=== PATIENT | female | born 1945 | race Caucasian/White ===

== ENCOUNTER 2017-11-16 10:19 | Observation (INO) | payer OTHER, MEDICARE ==
--- NOTE | 2017-11-16 11:03 | PDOC ---
History of Present Illness - General Chief Complaint: Pain, Acute Stated Complaint: SHOULDER PAIN Time Seen by Provider: 11/16/17 11:01 History Source: Patient Exam Limitations: No Limitations - History of Present Illness Initial Comments: 11/16/17 12:37 [place] 72 YOF with h/o metastatic breast ca, lung cancer on oral chemo, s/p VATS , Aortic Stenosis and AR s/p AVR on ASA only, HTN, NIDDM, HLD presenting with atraumatic right shoulder pain since 530 am while sitting in the kitchen. No weakness or paresthesias. Usually takes chronic opioids, took tylenol w/o relief. No f/c, cp or sob. . Past History - Past Medical History Allergies/Adverse Reactions: Allergies Allergy/AdvReac Type Severity Reaction Status Date / Time No Known Allergies Allergy Verified 11/16/17 10:37 Home Medications: Ambulatory Orders Calcium Carbonate [Caltrate 600] 600 mg PO DAILY 12/01/13 Cyanocobalamin [Vitamin B12 -] 1,000 mcg PO DAILY 12/01/13 Folic Acid/Multivit-Min/Lutein [Centrum Silver Chewable Tablet] 1 each PO DAILY 12/01/13 Gabapentin 100 mg PO BID 12/01/13 Simvastatin [Zocor -] 40 mg PO HS 12/01/13 Spironolactone 25 mg PO BID 12/01/13 metFORMIN HCL [Glucophage -] 1,000 mg PO BID 12/01/13 Aspirin [ASA -] 81 mg PO DAILY 11/18/14 Letrozole 2.5 mg PO HS 11/18/14 Metoprolol Succinate [Toprol Xl -] 50 mg PO DAILY 11/18/14 Palbociclib [Ibrance] 75 mg PO ASDIR 11/16/17 Cancer: Yes (LUNG,MAST) Cardiac Disorders: Yes (VALVE REPLACEMENT) COPD: No Diabetes: Yes (BORDERLINE) - Surgical History Cardiac Surgery: Yes (AORTIC VALVE REPLACEMENT, 11/16/13) Orthopedic Surgery: Yes (elbow surgery) - Suicide/Smoking/Psychosocial Hx Smoking History: Former smoker Have you smoked in the past 12 months: No If you are a former smoker, when did you quit?: 1986 Information on smoking cessation initiated: No Hx Alcohol Use: No Drug/Substance Use Hx: No Substance Use Type: None Hx Substance Use Treatment: No Review of Systems - Review of Systems Able to Perform ROS?: Yes Comments:: 11/16/17 16:09 GENERAL/CONSTITUTIONAL: No fever or chills. No weakness. no sweats. HEAD, EYES, EARS, NOSE AND THROAT: No change in vision or hearing. No ear pain or discharge. No sore throat or mouth pain. No difficulty swallowing. No congestion. CARDIOVASCULAR: No chest pain or palpitations, syncope or edema. RESPIRATORY: No SOB, cough, wheezing, or hemoptysis. GASTROINTESTINAL No nausea/vomiting. No diarrhea or constipation. No bloody stools. GENITOURINARY: No hematuria, dysuria, frequency, urgency or other changes. MUSCULOSKELETAL: No joint or muscle swelling or pain. No neck or back pain. SKIN: No rash or changes in skin color or lesions. NEUROLOGIC: No headache, vertigo, loss of consciousness, or change in strength/ sensation. No gait instability. HEMATOLOGIC/LYMPHATIC: No anemia, easy bruising/bleeding, or history of blood clots. +shoulder pain ALLERGIC/IMMUNOLOGIC: No allergies All other systems reviewed and negative, or as documented in HPI. *Physical Exam - Vital Signs Last Vital Signs Temp Pulse Resp BP Pulse Ox 98.2 F 82 18 151/57 L 96 11/16/17 10:37 11/16/17 10:37 11/16/17 10:37 11/16/17 10:37 11/16/17 10:37 - Physical Exam Comments: 11/16/17 12:39 General: Well appearing, awake and alert, NAD. HEENT: NCAT, PERRL, EOMI, clear conjunctiva, anicteric, moist mucus membranes, clear oropharynx, no oral lesions.. Neck: neck supple, FROM. no JVD or carotid bruit. Resp: CTAB, normal and even respirations, no respiratory distress CVS: RRR, soft holosystolic murmurs, 2+ peripheral pulses throughout, no peripheral edema chest: sternotomy scar, mastectomy scar Abdomen: soft, NTND, no peritoneal signs. Back: nontender, normal inspection and ROM MSK: no edema, ARGUETA x4, ROM intact. No clubbing or cyanosis. normal bulk and tone. No reproducible chest wall or right shoulder tenderness. no deltoid or AC joint/clavicular tenderness Neuro: alert, oriented appropriately; no focal neurologic deficits. SILT, 5/5 distal and prox strength in all extrem. speech clear. Skin: warm and well perfused, cap refill <2 sec, normal color 11/16/17 12:39 11/16/17 16:09 ED Treatment Course - LABORATORY CBC & Chemistry Diagram: 11/16/17 11:51 11/16/17 11:51 Medical Decision Making - Medical Decision Making 11/16/17 12:38 [place] 72 YOF with h/o metastatic breast ca, lung cancer on oral chemo, s/p VATS , Aortic Stenosis and AR s/p AVR on ASA only, HTN, NIDDM, HLD presenting with atraumatic nonexertional/nonreproducible right shoulder pain since 530 am while sitting in the kitchen. Vitals with mild hypertension, equal bp bilateral upper extremities. DDx includes ACS, angina, chest pain NOS, costochondritis, GERD, pleurisy, anxiety, esophageal spasm. Low suspicion for pulmonary embolism or dissection. labs and lytes reviewed, wnl. baseline anemia. D dimer positive, CTA to r/o dissection/PE trop negative x1, EKG normal sinus rhythm at 64 bpm, no interval abnormalities, narrow QRS, ST and T wave segments and morphology normal. morphine given for pain. on clinical reeval, improved but still present, nonreproducible. CT Angio chest : neg for PE or dissection, pleural based irregularity, which is stable c/w her malignancy. due to atypical pain presentation w/o trauma or msk reproducibility, and comorbidities such as female gender and DM/valvular heart disease/HTN will admit for r/o ACS and front desk monitor/EKG and tele, pain control Plan for admit observation telemetry, to r/o ischemia, serial trops and EKG/ tele monitoring. ASA administered, pain controlled, discussion with patient and family at bedside, questions answered. admit Dr. Bailey service/PMD Dr. Ibarra. 11/16/17 16:46 11/16/17 16:48 *DC/Admit/Observation/Transfer Diagnosis at time of Disposition: Metastatic cancer, Intractable pain, Chest pain, atypical - Discharge Dispostion Condition at time of disposition: Guarded - Referrals Referrals: Raymond Ibarra MD [Primary Care Provider] - - Patient Instructions - Post Discharge Activity
[2017-11-16] MEDS ORDERED: morphine CARPU-JECT 4 MG/1 ML DISP.SYRIN IVPUSH ONE ×2 (11:50→13:27)
[2017-11-16] MEDS ORDERED: morphine SULFATE 4 MG/ML VIAL ONE ×2 (12:00→13:50)
--- NOTE | 2017-11-16 12:08 | PDOC ---
History of Present Illness - General Chief Complaint: Pain, Acute Stated Complaint: SHOULDER PAIN Time Seen by Provider: 11/16/17 11:01 - History of Present Illness Initial Comments: 11/16/17 12:05 72 yo F w/ a hx of Lung Ca, aortic stenosis/regurgitation s/p bioprosthetic AVR , HTN, DM, chol, metastatic breast cancer s/p finished chemo + mastectomy here with the acute onset of Right sided anterior shoulder pain. She reports no weakness, numbness or tingling, just terrible focal aching pain. She denies chest pain, neck pain, hand pain, SOB, new onset difficulty breathing. She had no pain last night when she went to bed but this morning woke up with excruciating shoulder pain. Denies N/V/D. No new complaints other than shoulder pain. Past History - Past Medical History Allergies/Adverse Reactions: Allergies Allergy/AdvReac Type Severity Reaction Status Date / Time No Known Allergies Allergy Verified 11/16/17 10:37 Home Medications: Ambulatory Orders Calcium Carbonate [Caltrate 600] 600 mg PO DAILY 12/01/13 Cyanocobalamin [Vitamin B12 -] 1,000 mcg PO DAILY 12/01/13 Folic Acid/Multivit-Min/Lutein [Centrum Silver Chewable Tablet] 1 each PO DAILY 12/01/13 Gabapentin 100 mg PO BID 12/01/13 Simvastatin [Zocor -] 40 mg PO HS 12/01/13 Spironolactone 25 mg PO BID 12/01/13 metFORMIN HCL [Glucophage -] 1,000 mg PO BID 12/01/13 Aspirin [ASA -] 81 mg PO DAILY 11/18/14 Letrozole 2.5 mg PO HS 11/18/14 Metoprolol Succinate [Toprol Xl -] 50 mg PO DAILY 11/18/14 Palbociclib [Ibrance] 75 mg PO ASDIR 11/16/17 Cancer: Yes (LUNG,MAST) Cardiac Disorders: Yes (VALVE REPLACEMENT) COPD: No Diabetes: Yes (BORDERLINE) - Surgical History Cardiac Surgery: Yes (AORTIC VALVE REPLACEMENT, 11/16/13) Orthopedic Surgery: Yes (elbow surgery) - Suicide/Smoking/Psychosocial Hx Smoking History: Former smoker Have you smoked in the past 12 months: No If you are a former smoker, when did you quit?: 1986 Information on smoking cessation initiated: No Hx Alcohol Use: No Drug/Substance Use Hx: No Substance Use Type: None Hx Substance Use Treatment: No Review of Systems - Review of Systems Comments:: 11/16/17 12:12 CONSTITUTIONAL: Absent: fever, chills, diaphoresis, generalized weakness, malaise, loss of appetite HEENT: Absent: rhinorrhea, nasal congestion, throat pain, throat swelling, difficulty swallowing, mouth swelling, ear pain, eye pain, visual Changes CARDIOVASCULAR: Absent: chest pain, syncope, palpitations, irregular heart rate, lightheadedness , peripheral edema RESPIRATORY: Absent: cough, shortness of breath, dyspnea with exertion, orthopnea, wheezing, stridor, hemoptysis GASTROINTESTINAL: Absent: abdominal pain, abdominal distension, nausea, vomiting, diarrhea, constipation, melena, hematochezia GENITOURINARY: Absent: dysuria, frequency, urgency, hesitancy, hematuria, flank pain, genital pain MUSCULOSKELETAL: Present: Arthralgia, myalgia Absent: joint swelling SKIN: Absent: rash, itching, pallor HEMATOLOGIC/IMMUNOLOGIC: Present: Easy bleeding Absent: easy bruising, lymphadenopathy, frequent infections ENDOCRINE: Absent: unexplained weight gain, unexplained weight loss, heat intolerance, cold intolerance NEUROLOGIC: Absent: headache, focal weakness or paresthesias, dizziness, unsteady gait, seizure, mental status changes, bladder or bowel incontinence PSYCHIATRIC: Absent: anxiety, depression, suicidal or homicidal ideation, hallucinations. *Physical Exam - Vital Signs Last Vital Signs Temp Pulse Resp BP Pulse Ox 98.2 F 82 18 151/57 L 96 11/16/17 10:37 11/16/17 10:37 11/16/17 10:37 11/16/17 10:37 11/16/17 10:37 - Physical Exam Comments: 11/16/17 12:18 GENERAL: Well developed, well nourished. Awake and alert. No acute distress. HEENT: Normocephalic, atraumatic. PERRLA, EOMI. No conjunctival pallor. Sclera are non- icteric. Moist mucous membranes. Oropharynx is clear. NECK: Supple. Full ROM. No JVD. No thyromegaly. No lymphadenopathy. CARDIOVASCULAR: Regular rate and rhythm. Systolic murmur. Distal pulses are 2+ and symmetric. PULMONARY: No evidence of respiratory distress. Lungs clear to auscultation bilaterally. No wheezing, rales or rhonchi. ABDOMINAL: Soft. Non-tender. Non-distended. No rebound or guarding. No organomegaly. Normoactive bowel sounds. MUSCULOSKELETAL There is focal Right non-reproducible anterior shoulder pain. Normal range of motion at all joints. No bony deformities or tenderness. No CVA tenderness. EXTREMITIES: No cyanosis. No clubbing. No edema. No calf tenderness. SKIN: Warm and dry. Normal capillary refill. No rashes. No jaundice. NEUROLOGICAL: Alert, awake, appropriate. Cranial nerves 2-12 intact. No deficits to light touch in face, upper extremities and lower extremities. No motor deficits in the in face, upper extremities and lower extremities. Normal speech. Gait is normal without ataxia. PSYCHIATRIC: Cooperative. Good eye contact. Appropriate mood and affect. ED Treatment Course - LABORATORY CBC & Chemistry Diagram: 11/16/17 11:51 11/16/17 11:51 - RADIOLOGY Radiology Studies Ordered: Category Date Time Status CHEST PA & LAT [RAD] Stat Radiology 11/16/17 11:51 Ordered SHOULDER-RIGHT [RAD] Stat Radiology 11/16/17 11:52 Ordered - Medications Given in the ED: ED Medications Discontinued Medications Generic Name Dose Route Start Last Admin Trade Name Freq PRN Reason Stop Dose Admin Morphine Sulfate 4 mg 11/16/17 11:50 11/16/17 12:01 Morphine Injection - IVPUSH 11/16/17 11:51 4 mg ONCE ONE Administration Medical Decision Making - Medical Decision Making 11/16/17 12:21 72 yo F w/ a hx of Lung Ca, aortic stenosis/regurgitation s/p bioprosthetic AVR , HTN, DM, chol, metastatic breast cancer s/p finished chemo + mastectomy here with the acute onset of Right sided anterior shoulder pain. Working DD includes but not limited to: metastasis, dissection, PE, ACS, MSK pain, pathologic fracture Plan: BP measurement both arms, EKG, Xrays, labs, analgesia, re-assess. BP R - 130/57 BP L - 131/54 Labs notable for anemia, and elevated D Dimer, otherwise unremarkable and WNL. Will do CTA to look for PE or dissection. - CTA showed no signs of acute PE or dissection. Will admit patient for obs for intractable pain, atypical chest pain, and probable metastasis so she can receive and MRI. 11/16/17 17:31 *DC/Admit/Observation/Transfer Diagnosis at time of Disposition: Metastatic cancer, Intractable pain, Chest pain, atypical - Discharge Dispostion Condition at time of disposition: Guarded Decision to Admit order: Yes - Referrals - Patient Instructions - Post Discharge Activity
[2017-11-16 12:20] LABS: BASO % 2.2 % (0-2.0); EOS % 3.5 % (0-4.5); HEMATOCRIT 30.9 % (32.4-45.2); HEMOGLOBIN 10.6 GM/dL (10.7-15.3); LYMPH % 16.5 % (8-40); MCH 35.7 pg (25.7-33.7); MCHC 34.3 g/dl (32.0-36.0); MEAN CELL VOLUME 104.2 fl (80-96); MEAN PLT VOLUME 7.6 fl (7.5-11.1); MONO % 4.2 % (3.8-10.2); NEUT % 73.6 % (42.8-82.8); PLATELET COUNT 371 K/MM3 (134-434); RBC 2.96 M/mm3 (3.60-5.2); RDW 16.8 % (11.6-15.6); WHITE BLOOD COUNT 4.7 K/mm3 (4.0-10.0)
[2017-11-16 12:40] LABS: ALBUMIN 4.1 g/dl (3.4-5.0); ALK PHOS 79 U/L (45-117); ANION GAP 8 MMOL/L (8-16); BILIRUBIN,TOTAL 0.3 mg/dL (0.2-1); BLOOD UREA NITROGEN 18 mg/dL (7-18); CALCIUM 9.8 mg/dL (8.5-10.1); CHLORIDE 106 mmol/L (98-107); CO2 26 mmol/L (21-32); CREATININE 0.9 mg/dL (0.55-1.3); GLUCOSE,RANDOM 92 mg/dL (74-106); POTASSIUM 4.8 mmol/L (3.5-5.1); SGOT/AST 16 U/L (15-37); SGPT/ALT 33 U/L (13-61); SODIUM 140 mmol/L (136-145); TOT PROT 7.6 g/dl (6.4-8.2)
[2017-11-16] MEDS ORDERED: SODIUM CHLORIDE 0.9% 500 ML INFUS.BAG IV ONE (13:02)
[2017-11-16] MEDS ORDERED: LIDOCAINE 5% TOPICAL PATCH TP ONE (13:17)
[2017-11-16] MEDS ORDERED: LIDOCAINE 5% TOPICAL PATCH ONE (13:18)
--- NOTE | 2017-11-16 15:25 | EKG ---
Test Reason : Blood Pressure : / mmHG Vent. Rate : 064 BPM Atrial Rate : 064 BPM P-R Int : 162 ms QRS Dur : 094 ms QT Int : 404 ms P-R-T Axes : 051 053 051 degrees QTc Int : 416 ms NORMAL SINUS RHYTHM NORMAL ECG WHEN COMPARED WITH ECG OF 18-NOV-2014 16:26, NO SIGNIFICANT CHANGE WAS FOUND Confirmed by MD Petty Daniel ([id number]) on 11/16/2017 3:25:49 PM Referred By: Confirmed By:Jozef Petty MD
[2017-11-16] MEDS ORDERED: morphine SULFATE 4 MG/ML VIAL IVPUSH PRN (16:50)
[2017-11-16] MEDS ORDERED: oxyCODONE HCL 5 MG TABLET PO PRN (16:51)
[2017-11-16] MEDS ORDERED: ACETAMINOPHEN 325 MG TABLET (FP) PO PRN ×3 (16:51→16:55)
[2017-11-16] MEDS ORDERED: LETROZOLE 2.5 MG TABLET (FP) PO SCH (22:00)
[2017-11-16] MEDS ORDERED: LIDOCAINE PATCH REMOVAL MC SCH (22:00)
[2017-11-16] MEDS ORDERED: ATORVASTATIN CA 40 MG TABLET (FP) PO SCH (22:00)
[2017-11-16] MEDS: SPIRONOLACTONE 25 MG TABLET (FP) PO SCH (22:36)
[2017-11-16] MEDS: GABAPENTIN 100 MG CAPSULE (FP) PO SCH (22:37)
[2017-11-16] MEDS: HEPARIN NA (PORCINE) 5,000 UNITS/ML 1ML VIAL SQ SCH (22:37)
[2017-11-16 23:48] VITALS: BMI 36.6
[2017-11-16] MEDS ORDERED: FLU VACCINE QUAD 60 MCG/0.5 ML (MDV 18-19) IM ONE (23:49)
--- NOTE | 2017-11-17 08:14 | HP ---
Admitting History and Physical - Primary Care Physician PCP: Raymond Ibarra (Covering physician:Uriel Bailey) - Admission Chief Complaint: right shoulder pain History of Present Illness: 72 yo F w/ a hx of Lung Ca, aortic stenosis/regurgitation s/p bioprosthetic AVR , HTN, DM, chol, metastatic breast cancer s/p finished chemo + mastectomy here with the acute onset of Right sided anterior shoulder pain. She reports no weakness, numbness or tingling, just terrible focal aching pain. She denies chest pain, neck pain, hand pain, SOB, new onset difficulty breathing. She had no pain last night when she went to bed but this morning woke up with excruciating shoulder pain. Denies N/V/D. No new complaints other than shoulder pain. History Source: Patient, Medical Record Limitations to Obtaining History: No Limitations - Past Medical History Cardiovascular: Yes: Other (aortic valve replacement 2013). No: CHF Heme/Onc: Yes: Anemia, Cancer, Current Chemotherapy Endocrine: Yes: Diabetes Mellitus - Past Surgical History Past Surgical History: Yes: Mastectomy, Valve Replacement - Smoking History Smoking history: Former smoker Have you smoked in the past 12 months: No If you are a former smoker, when did you quit?: 1986 - Alcohol/Substance Use Hx Alcohol Use: No - Social History ADL: Independent History of Recent Travel: No Home Medications - Allergies Allergies/Adverse Reactions: Allergies Allergy/AdvReac Type Severity Reaction Status Date / Time No Known Allergies Allergy Verified 11/16/17 10:37 - Home Medications Home Medications: Ambulatory Orders Calcium Carbonate [Caltrate 600] 600 mg PO DAILY 12/01/13 Cyanocobalamin [Vitamin B12 -] 1,000 mcg PO DAILY 12/01/13 Folic Acid/Multivit-Min/Lutein [Centrum Silver Chewable Tablet] 1 each PO DAILY 12/01/13 Gabapentin 300 mg PO BID 12/01/13 Simvastatin [Zocor -] 40 mg PO HS 12/01/13 Spironolactone 25 mg PO BID 12/01/13 metFORMIN HCL [Glucophage -] 1,000 mg PO BID 12/01/13 Aspirin [ASA -] 81 mg PO DAILY 11/18/14 Letrozole 2.5 mg PO HS 11/18/14 Metoprolol Succinate [Toprol Xl -] 50 mg PO DAILY 09/24/15 Palbociclib [Ibrance] 75 mg PO DAILY 11/16/17 Review of Systems - Review of Systems Constitutional: reports: No Symptoms Eyes: reports: No Symptoms HENT: reports: No Symptoms Neck: reports: No Symptoms Cardiovascular: reports: No Symptoms Respiratory: reports: No Symptoms Gastrointestinal: reports: No Symptoms Genitourinary: reports: No Symptoms Breasts: reports: No Symptoms Reported Musculoskeletal: reports: Joint Pain (right shoulder) Integumentary: reports: No Symptoms Neurological: reports: No Symptoms Endocrine: reports: No Symptoms Hematology/Lymphatic: reports: No Symptoms Psychiatric: reports: No Symptoms Physical Examination Vital Signs: Vital Signs Temperature 97.8 F 11/17/17 05:00 Pulse Rate 72 11/17/17 05:00 Respiratory Rate 20 11/17/17 05:00 Blood Pressure 115/53 L 11/17/17 05:00 O2 Sat by Pulse Oximetry (%) 96 11/17/17 00:50 Findings/Remarks: Pt comfortable, sitting at the edge of the bed, reports of no pain MRI RUE results pending awaiting ortho consult Constitutional: Yes: Well Nourished, No Distress, Calm Cardiovascular: Yes: Regular Rate and Rhythm Respiratory: Yes: Regular Gastrointestinal: Yes: Normal Bowel Sounds, Soft Musculoskeletal: Yes: Other (right shoulder pain) Extremities: Yes: WNL Edema: No Peripheral Pulses WNL: Yes Neurological: Yes: Alert, Oriented Psychiatric: Yes: Alert, Oriented Labs: CBC, BMP 11/16/17 11:51 11/16/17 11:51 Imaging - Results Chest X-ray: Report Reviewed X-ray: Report Reviewed Cat Scan: Report Reviewed MRI: Pending Problem List - Problems (1) Shoulder pain, right Assessment/Plan: -Ortho consult -MRI RUE results pending -lidoderm patch -received 8 mg of morphine in the ER yesterday Code(s): M25.511 - PAIN IN RIGHT SHOULDER (2) Metastatic cancer Assessment/Plan: Sees Dr Britton in [place] Code(s): C79.9 - SECONDARY MALIGNANT NEOPLASM OF UNSPECIFIED SITE Assessment/Plan see problem list d/c home later today
[2017-11-17 09:21] VITALS: BP 120/64; PULSE 71; TEMP 98.1
[2017-11-17] MEDS ORDERED: ASPIRIN 81 MG CHEWABLE TABLETS PO SCH (10:00)
[2017-11-17] MEDS ORDERED: CYANOCOBALAMIN 1,000 MCG TABLET (FP) PO SCH (10:00)
[2017-11-17] MEDS: HEPARIN NA (PORCINE) 5,000 UNITS/ML 1ML VIAL SQ SCH (10:07)
[2017-11-17] MEDS: GABAPENTIN 100 MG CAPSULE (FP) PO SCH (10:07)
[2017-11-17] MEDS: SPIRONOLACTONE 25 MG TABLET (FP) PO SCH (10:08)
--- NOTE | 2017-11-17 10:50 | PN ---
Progress Note (short form) - Note Progress Note: Pt seen and examined. She is a 72 year old F pt with a c/o severe pain in the right shoulder for the past 24 hours. Denies any h/o trauma, infection, or any other pathology involving the right shoulder. She states it is much better this AM. Better ROM, less pain. + h/o lung CA, breast CA, mets. PE RUE and shoulder look good, no swelling, no erythema, no deformity, no signs of acute trauma. RUE NVI with excellent ROM throughout, including good ROM of the right shoulder in all planes. Good RTC resistance strength + very tender over the anterior, proximal, biceps tendon Xrays Nl, no acute bony pathology, mildly high riding humeral head MRI Report pending, however I do not appreciate any fracture, dislocation, metastatic lesion or complete RTC tear. I can see edema and inflammation of the right RTC insertion, AC joint Imp 1 day of acute pain, right proximal biceps tendinitis Rec DC home today F/U as an out pt NSAIDS if tolerable Activities as tolerated
== END 2017-11-17 13:32 | disposition home or self-care (01) ==
LOC: JER 10:19 → JERBED 15:36 → J7W 19:04
PROVIDERS: ADMIT Family Medicine; ATTEND Family Medicine
PROC: 3E033NZ Introduction of Analgesics, Hypnotics, Sedatives into Peripheral Vein, Percutaneous Approach (ICD-10-PCS; principal; 2017-11-16)
PROC: 3E0337Z Introduction of Electrolytic and Water Balance Substance into Peripheral Vein, Percutaneous Approach (ICD-10-PCS; 2017-11-16)
PROC: 3E013GC Introduction of Other Therapeutic Substance into Subcutaneous Tissue, Percutaneous Approach (ICD-10-PCS; 2017-11-16)
DX: M25.511 Pain in right shoulder (principal); C78.00 Secondary malignant neoplasm of unspecified lung; I10 Essential (primary) hypertension; E78.5 Hyperlipidemia, unspecified; E11.9 Type 2 diabetes mellitus without complications; Z87.891 Personal history of nicotine dependence; Z95.2 Presence of prosthetic heart valve; Z79.82 Long term (current) use of aspirin; Z79.84 Long term (current) use of oral hypoglycemic drugs; Z92.21 Personal history of antineoplastic chemotherapy; Z85.3 Personal history of malignant neoplasm of breast
CPT/HCPCS: 36415; 71046-TC-FY; 71275-TC; 73030-TC-RT-FY; 73218-TC-RT; 80053; 82962; 83036; 84484; 85025; 85379; 93005; 93010; 96372; 96374; 96376; 99285-25; G0378; J1644

== ENCOUNTER 2018-03-12 06:02 | Day surgery (SDC) | payer OTHER, MEDICARE ==
[2018-03-11 10:12] VITALS: BMI 33.6
[2018-03-12 06:27] VITALS: PULSE 80; TEMP 98.2
[2018-03-12] MEDS ORDERED: OFLOXACIN 0.3% OPHTHALMIC SOLUTION 5 ML BOTTLE ONE (06:36)
[2018-03-12] MEDS ORDERED: KETOROLAC TROMETHAMINE 0.5% EYE DROP 1 DROP DROPS ONE (06:36)
[2018-03-12] MEDS ORDERED: CYCLOPENTOLATE HCL 1% OPHTH SOLN 2 ML BOTTLE ONE (06:36)
[2018-03-12] MEDS ORDERED: TROPICAMIDE 1% OPHTH SOLN 15 ML BOTTLE ONE (06:36)
[2018-03-12] MEDS ORDERED: ACETAMINOPHEN 325 MG TABLET (FP) PO PRN (06:53)
[2018-03-12] MEDS ORDERED: PHENYLEPHRINE 2.5% OPHTH SOLN 15 ML BOTTLE OP SCH (07:00)
[2018-03-12] MEDS ORDERED: CYCLOPENTOLATE HCL 1% OPHTH SOLN 2 ML BOTTLE OP SCH (07:00)
[2018-03-12] MEDS ORDERED: PHENYLEPHRINE 2.5% OPHTH SOLN 15 ML BOTTLE OD SCH (07:02)
[2018-03-12] MEDS: KETOROLAC TROMETHAMINE 0.5% EYE DROP 1 DROP DROPS OP SCH ×2 (07:03→07:13)
[2018-03-12] MEDS: OFLOXACIN 0.3% OPHTHALMIC SOLUTION 5 ML BOTTLE OP SCH ×2 (07:03→07:13)
[2018-03-12] MEDS: TROPICAMIDE 1% OPHTH SOLN 15 ML BOTTLE OP SCH ×2 (07:04→07:14)
[2018-03-12] MEDS ORDERED: CHONDROITIN SU A/HYALUR SOD 1 KIT ONE (07:09)
[2018-03-12] MEDS ORDERED: VANCOMYCIN 500 MG VIAL (RESTRICTED TO ID ONLY) ONE (07:24)
[2018-03-12] MEDS ORDERED: EPINEPHrine/PF 1 MG/1 ML (1:1,000) AMPULE ONE (07:24)
[2018-03-12] MEDS ORDERED: WATER FOR INJ,STERILE 10 ML ONE (07:25)
[2018-03-12] MEDS ORDERED: BSS (NA/CA/MG/K) BALANCED SALT SOLUTION OPHTH SOLN 15 ML BOTTLE ONE (07:25)
[2018-03-12] MEDS ORDERED: TETRACAINE 0.5% OPHTH SOLN 2 ML BOTTLE ONE (07:25)
[2018-03-12] MEDS ORDERED: LIDOCAINE HCL/PF 1% SDV 5ML VIAL ONE (07:25)
[2018-03-12] MEDS ORDERED: POVIDONE-IODINE 5% OPHTHALMIC PREP 30 ML SOLUTION ONE (07:26)
[2018-03-12] MEDS ORDERED: MIDAZOLAM HCL 2 MG/2 ML SINGLE DOSE VIAL ONE (07:30)
[2018-03-12] MEDS ORDERED: ePHEDrine SULFATE 50 MG/1 ML AMPULE ONE (07:32)
[2018-03-12] MEDS ORDERED: PROPOFOL 20 ML ONE (07:33)
[2018-03-12] MEDS ORDERED: SUCCINYLCHOLINE CHLORIDE 200 MG/10 ML VIAL ONE (07:33)
[2018-03-12] MEDS ORDERED: TETRACAINE 0.5% OPHTH SOLN 2 ML BOTTLE OD ONE (08:07)
[2018-03-12] MEDS ORDERED: POVIDONE-IODINE 5% OPHTHALMIC PREP 30 ML SOLUTION OD ONE (08:08)
[2018-03-12] MEDS ORDERED: LIDOCAINE HCL 1% PRESERVATIVE FREE - 30ML VIAL IO ONE (08:14)
[2018-03-12] MEDS ORDERED: CHONDROITIN SU A/HYALUR SOD 1 KIT IO ONE (08:14)
[2018-03-12] MEDS ORDERED: BSS (NA/CA/MG/K) BALANCED SALT SOLUTION OPHTH SOLN 15 ML BOTTLE OD ONE (08:14)
[2018-03-12] MEDS ORDERED: EPINEPHrine/PF 1 MG/1 ML (1:1,000) AMPULE SQ ONE (08:20)
--- NOTE | 2018-03-12 08:55 | SPEC ---
DATE OF OPERATION: OPERATION: Phacoemulsification with posterior chamber intraocular lens implantation, right eye. Lens used [id number], 21.5 Diopter power, Serial No. [id number]. PREOPERATIVE DIAGNOSIS: Cataract, right eye. POSTOPERATIVE DIAGNOSIS: Cataract, right eye. SURGEON: Agusto Saha M.D. ANESTHESIA: Topical MAC. COMPLICATIONS: None. PROCEDURE: The patient was brought to the operating room and correctly identified along with the operative site and the correct intraocular lens mendez. The patient was then prepped and draped in the usual sterile fashion including 5% Betadine solution in the conjunctival sac and an eyelid drape. An eyelid speculum was then placed in the eye. A paracentesis port was created and approximately 0.5 mL of preservative free Lidocaine was then injected into the eye. Viscoelastic was then injected to inflate the anterior chamber. A temporal clear corneal wound was created. A continuous circular capsulorrhexis was performed. The nucleus was then hydrodissected with BSS and removed with phacoemulsification. The remaining cortical material was irrigated and aspirated. Viscoelastic was injected to inflate the capsular bag and the intraocular lens was then implanted into the capsular bag. The remaining Viscoelastic was irrigated and aspirated from the eye. The IOL was noted to be well centered and completely covered by the anterior capsulorrhexis. Topical vancomycin was placed and the eye patched and shielded. All wounds were tested and found to be watertight. No suture was placed. The eye was then shielded. The patient was then discharged from the operating room in stable condition. Estela MARES/[id number]
[2018-03-12 09:32] VITALS: BP 116/43
== END 2018-03-12 09:35 | disposition home or self-care (01) ==
LOC: JASU-SURG 06:02
PROVIDERS: ATTEND Ophthalmology
PROC: 08RJ3JZ Replacement of Right Lens with Synthetic Substitute, Percutaneous Approach (ICD-10-PCS; principal; 2018-03-12 08:00)
DX: H26.9 Unspecified cataract (principal); E11.9 Type 2 diabetes mellitus without complications; Z79.84 Long term (current) use of oral hypoglycemic drugs
CPT/HCPCS: 82962

== ENCOUNTER 2019-01-17 07:17 | Emergency (ER) | payer OTHER ==
[2019-01-17 07:26] VITALS: BP 131/59; PULSE 81; TEMP 98; BMI 30.2
--- NOTE | 2019-01-17 07:58 | PDOC ---
History of Present Illness - General Chief Complaint: Respiratory Stated Complaint: COLD Time Seen by Provider: 01/17/19 07:29 History Source: Patient Exam Limitations: No Limitations - History of Present Illness Initial Comments: 01/17/19 07:43 73F with a PMH of Lung Ca, aortic stenosis/regurgitation s/p bioprosthetic AVR, HTN, DM, chol, metastatic breast cancer s/p finished chemo + mastectomy, who presents to the ER with 4 days of worsening productive cough. The patient states that she's had a cough for over a month, but over the last 4 days has experienced worsening sleep, chills, cough, and nausea. She denies CP or worsening SOB, dysuria, abdominal pain, diaphoresis, but admits to a headache. She states that she called her chief clerk, Dr. Singleton, who prescribed her a z-pack and she is on day 4 of the z-pack. Past History - Past Medical History Allergies/Adverse Reactions: Allergies Allergy/AdvReac Type Severity Reaction Status Date / Time No Known Allergies Allergy Verified 01/17/19 07:26 Home Medications: Ambulatory Orders Calcium Carbonate [Caltrate 600] 600 mg PO DAILY 12/01/13 Cyanocobalamin [Vitamin B12 -] 1,000 mcg PO DAILY 12/01/13 Folic Acid/Multivit-Min/Lutein [Centrum Silver Chewable Tablet] 1 each PO DAILY 12/01/13 Gabapentin 300 mg PO BID 12/01/13 Simvastatin [Zocor -] 40 mg PO HS 12/01/13 Spironolactone 25 mg PO BID 12/01/13 metFORMIN HCL [Glucophage -] 1,000 mg PO BID 12/01/13 Aspirin [ASA -] 81 mg PO DAILY 11/18/14 Letrozole 2.5 mg PO HS 11/18/14 Metoprolol Succinate [Toprol XL -] 50 mg PO DAILY 11/18/14 Palbociclib [Ibrance] 75 mg PO DAILY 11/16/17 Acetaminophen [Tylenol .Regular Strength -] 650 mg PO Q6H PRN tablet 11/17/17 Ferrous Sulfate 325 mg PO DAILY 03/11/18 Anemia: Yes Asthma: No Cancer: Yes (LUNG,MAST) Cardiac Disorders: Yes (AORTIC VALVE REPLACEMENT) CVA: No COPD: No CHF: No Dementia: No Diabetes: Yes (BORDERLINE) GI Disorders: No Disorders: No HTN: No Hypercholesterolemia: Yes Liver Disease: No Seizures: No Thyroid Disease: No - Surgical History Abdominal Surgery: No Appendectomy: No Cardiac Surgery: Yes (AORTIC VALVE REPLACEMENT, 11/16/13) Cholecystectomy: Yes Lung Surgery: No Neurologic Surgery: No Orthopedic Surgery: Yes (elbow surgery) - Psycho Social/Smoking Cessation Hx Smoking History: Never smoked Have you smoked in the past 12 months: No If you are a former smoker, when did you quit?: 1986 Alcohol Use: No Drug/Substance Use Hx: No Substance Use Type: None Hx Substance Use Treatment: No Review of Systems - Review of Systems Able to Perform ROS?: Yes Comments:: 01/17/19 08:16 GENERAL/CONSTITUTIONAL: + for chills. No fever. No weakness. HEAD, EYES, EARS, NOSE AND THROAT: No change in vision. No ear pain or discharge. No sore throat. CARDIOVASCULAR: No chest pain, palpitations, or lightheadedness. RESPIRATORY: + for cough. No wheezing, shortness of breath, or hemoptysis. GASTROINTESTINAL: + for nausea. No abdominal pain, vomiting, diarrhea, or constipation. GENITOURINARY: No dysuria, frequency, hematuria, or change in urination. MUSCULOSKELETAL: No joint or muscle swelling or pain. No neck or back pain. SKIN: No rash or lesions. NEUROLOGIC: No headache, numbness, tingling, focal weakness, loss of consciousness, or change in strength/sensation. Is the patient limited Tristanian proficient: No *Physical Exam - Vital Signs Last Vital Signs Temp Pulse Resp BP Pulse Ox 98 F 81 18 131/59 L 99 01/17/19 07:22 01/17/19 07:22 01/17/19 07:22 01/17/19 07:22 01/17/19 07:22 - Physical Exam Comments: 01/17/19 08:17 GENERAL: Well developed, well nourished. Awake and alert. No acute distress. HEENT: Normocephalic, atraumatic. Hearing grossly normal. Moist mucous membranes. PERRLA, EOMI. No conjunctival pallor. Sclera are non-icteric. NECK: Supple. Full ROM. No JVD. CARDIOVASCULAR: Regular rate and rhythm. No murmurs, rubs, or gallops. PULMONARY: No evidence of respiratory distress. Decreased lung sounds on R side diffusely. ABDOMINAL: Soft. Non-tender. Non-distended. No rebound or guarding. GENITOURINARY: No CVA tenderness bilaterally. MUSCULOSKELETAL: Normal range of motion at all joints. No bony deformities or tenderness. EXTREMITIES: No cyanosis. No clubbing. Trace LE edema. No calf tenderness or swelling. SKIN: Warm and dry. Normal capillary refill. No rashes. No jaundice. NEUROLOGICAL: Alert, awake, appropriate. Cranial nerves 2-12 grossly intact. Normal speech. Gait is normal without ataxia. PSYCHIATRIC: Cooperative. Good eye contact. Appropriate mood and affect. ED Treatment Course - LABORATORY CBC & Chemistry Diagram: 01/17/19 08:22 01/17/19 08:22 - RADIOLOGY Radiology Studies Ordered: Category Date Time Status CHEST PA & LAT [RAD] Stat Radiology 01/17/19 07:42 Ordered Medical Decision Making - Medical Decision Making 01/17/19 08:18 73F with MMP who presents to the ER with worsening cough, refractory to z-pack. D/t pt's h/o CA, will obtain CXR and CBC, CMP to evaluate WBC. Cough could be viral which would explain why a z-pack did not help, however with CA, will be looking for post-obstructive PNA. Pending labs and imaging. 01/17/19 10:29 Labs WNL for pt. No WBC. CXR shows possible infiltrate vs atelectasis. Will d/w Dr. Singleton regarding disposition. 01/17/19 10:40 Case d/w Dr. Goodman who recommends adding augmentin to pt's regimen and f/u Saturday in their office. Will d/c with abx and PCP f/u. Discharge - Discharge Information Problems reviewed: Yes Clinical Impression/Diagnosis: Cough Lung cancer Qualifiers: Laterality: right Lung location: unspecified part of lung Qualified Code(s): C34.91 - Malignant neoplasm of unspecified part of right bronchus or lung Condition: Good Disposition: HOME - Admission No - Follow up/Referral Referrals: Raymond Ibarra MD [Primary Care Provider] - - Patient Discharge Instructions Patient Printed Discharge Instructions: DI for Acute Bronchitis, DI for Pneumonia -- Adult Additional Instructions: Your ER visit is not complete until your follow up with your primary care physician. Please follow up with your primary care physician in 1-2 days. Please return to the ER if you have any signs or symptoms of chest pain, shortness of breath, uncontrollable fever, chills, nausea, vomiting, numbness, tingling, or weakness in any part of your body, changes in vision, or slurred speech. Please take your medications as prescribed. Please return to the ER if symptoms persist, worsen, or new symptoms arise. - Post Discharge Activity
--- NOTE | 2019-01-17 08:11 | PDOC ---
Attending Attestation - Resident Resident Name: Mark Dorado - ED Attending Attestation I have performed the following: I have examined & evaluated the patient, The case was reviewed & discussed with the resident, I agree w/resident's findings & plan, Exceptions are as noted - HPI HPI: 01/17/19 08:05 73y F hx of Lung Ca, aortic stenosis/regurgitation s/p bioprosthetic AVR, HTN, DM, chol, breast cancer presents with complaint of persistent cough. Patient states that she got back from a cruise approximately 1 month ago where many people had viral-like illness, she had seen her primary care doctor was started on Z-Spencer however there is been no improvement. Patient endorses chest congestion with cough however she is unable to bring anything up mild nausea, generalized weakness and mild shortness of breath beyond for baseline. Patient denies any chest pain, nausea, vomiting, diaphoresis, abdominal pain, back pain , increased leg swelling, calf pain. Exam: GENERAL: The patient is awake, alert, and fully oriented, Nontoxic - in no acute distress. HEAD: Normocephalic, atraumatic. EYES: extraocular movements intact, sclera anicteric, conjunctiva clear. ENT: Normal voice, Moist mucous membranes. NECK: Normal range of motion, supple LUNGS: Diminished breath sounds in the right HEART: Regular rate and rhythm, normal S1 and S2 without murmur, rub or gallop. ABDOMEN: Soft, nontender, No guarding, no rebound. No CVA tenderness EXTREMITIES: Normal range of motion, trace edema, no calf tenderness, negative Homans signs bilaterally NEUROLOGICAL: No facial assymetry, Normal speech, PSYCH: Normal mood, normal affect. SKIN: Warm, Dry, normal turgor, Possible URI consider pneumonia, pleural effusion Will obtain chest x-ray, blood work Will reassess - Physicial Exam PE: 01/17/19 10:58 see olya - Medical Decision Making 01/17/19 10:57 labs reviewed cxr reviewed dw pt pmd, will broaden coveage with po abx will hvev pt fu with pmd as outptient return precauions were discussed Heart Score/ECG Review - ECG Impressions Comment:: 01/17/19 09:10 Twelve-lead EKG was performed and reviewed by me. There is normal sinus rhythm with a normal rate. Rate of 73 The axis is normal. The intervals are normal. abnormal R wave progression There are no ST or T wave abnormalities.
[2019-01-17 09:40] LABS: EOS % 7.1 % (0-4.5); HEMATOCRIT 31.7 % (32.4-45.2); HEMOGLOBIN 10.6 GM/dL (10.7-15.3); MCHC 33.6 g/dl (32.0-36.0); MEAN CELL VOLUME 92.5 fl (80-96); MEAN PLT VOLUME 8.3 fl (7.5-11.1); MONO % 6.3 % (3.8-10.2); NEUT % 66.6 % (42.8-82.8); PLATELET COUNT 325 K/MM3 (134-434); RBC 3.43 M/mm3 (3.60-5.2); RDW 14.1 % (11.6-15.6); WHITE BLOOD COUNT 6.4 K/mm3 (4.0-10.0)
[2019-01-17 10:14] LABS: ALBUMIN 3.6 g/dl (3.4-5.0); BILIRUBIN,TOTAL 0.2 mg/dL (0.2-1); BLOOD UREA NITROGEN 13.9 mg/dL (7-18); CALCIUM 8.9 mg/dL (8.5-10.1); CREATININE 0.7 mg/dL (0.55-1.3); POTASSIUM 4.7 mmol/L (3.5-5.1); TOT PROT 7.1 g/dl (6.4-8.2)
--- NOTE | 2019-01-17 18:02 | EKG ---
Test Reason : Blood Pressure : / mmHG Vent. Rate : 073 BPM Atrial Rate : 073 BPM P-R Int : 166 ms QRS Dur : 090 ms QT Int : 386 ms P-R-T Axes : 082 042 048 degrees QTc Int : 425 ms POOR DATA QUALITY, INTERPRETATION MAY BE ADVERSELY AFFECTED NORMAL SINUS RHYTHM CANNOT RULE OUT ANTERIOR INFARCT , AGE UNDETERMINED ABNORMAL ECG WHEN COMPARED WITH ECG OF 17-OCT-2018 08:19, NO SIGNIFICANT CHANGE WAS FOUND Confirmed by MD Cedric, Chao ([id number]) on 01/17/2019 6:02:18 PM Referred By: Confirmed By:Chao Steele MD
== END 2019-01-17 11:15 | disposition home or self-care (01) ==
LOC: JER 07:17
DX: R05 Cough (principal); C34.91 Malignant neoplasm of unspecified part of right bronchus or lung; I35.0 Nonrheumatic aortic (valve) stenosis; I35.1 Nonrheumatic aortic (valve) insufficiency; I10 Essential (primary) hypertension; E11.9 Type 2 diabetes mellitus without complications; E78.00 Pure hypercholesterolemia, unspecified; D64.9 Anemia, unspecified; Z85.3 Personal history of malignant neoplasm of breast; Z95.2 Presence of prosthetic heart valve; Z85.118 Personal history of other malignant neoplasm of bronchus and lung; Z92.21 Personal history of antineoplastic chemotherapy; Z79.84 Long term (current) use of oral hypoglycemic drugs; Z79.82 Long term (current) use of aspirin
CPT/HCPCS: 36415; 71046-TC-FY; 80053; 85025; 87804; 93005; 93010; 99282-25

== ENCOUNTER 2020-05-21 17:39 | Emergency (ER) | payer OTHER ==
[2020-05-21 17:53] VITALS: TEMP 97.9; BMI 28.7
[2020-05-21 19:26] LABS: BASO % 1.5 % (0-2.0); EOS % 1.4 % (0-4.5); HEMATOCRIT 35.1 % (32.4-45.2); HEMOGLOBIN 11.6 GM/dL (10.7-15.3); LYMPH % 23.5 % (8-40); MCH 31.2 pg (25.7-33.7); MEAN CELL VOLUME 94.4 fl (80-96); MEAN PLT VOLUME 8.3 fl (7.5-11.1); MONO % 13.7 % (3.8-10.2); NEUT % 59.9 % (42.8-82.8); PLATELET COUNT 311 K/MM3 (134-434); RBC 3.72 M/mm3 (3.60-5.2); RDW 16.8 % (11.6-15.6); WHITE BLOOD COUNT 5.4 K/mm3 (4.0-10.0)
[2020-05-21 19:29] LABS: INR 0.97 (0.83-1.09); PROTHROMBIN TIME (PATIENT) 11.9 SEC (9.7-13.0)
[2020-05-21 19:40] LABS: CHLORIDE 106 mmol/L (98-107); POTASSIUM 4.6 mmol/L (3.5-5.1); SODIUM 138 mmol/L (136-145)
[2020-05-21 19:42] LABS: CALCIUM 9.5 mg/dL (8.5-10.1)
[2020-05-21 19:43] LABS: ALBUMIN 3.6 g/dl (3.4-5.0); ANION GAP 5 MMOL/L (8-16); BLOOD UREA NITROGEN 16.7 mg/dL (7-18); CO2 27 mmol/L (21-32); GLUCOSE,RANDOM 91 mg/dL (74-106)
[2020-05-21 19:46] LABS: CREATININE 0.7 mg/dL (0.55-1.3); SGOT/AST 18 U/L (15-37); SGPT/ALT 23 U/L (13-61)
[2020-05-21 19:48] LABS: BILIRUBIN,TOTAL 0.3 mg/dL (0.2-1); TOT PROT 6.9 g/dl (6.4-8.2)
[2020-05-21 19:49] LABS: ALK PHOS 94 U/L (45-117)
[2020-05-21] MEDS ORDERED: LACTATED RINGERS SOLUTION 1000 ML INFUS.BAG IV ONE (21:42)
[2020-05-21 22:11] VITALS: BP 126/65; PULSE 84
== END 2020-05-21 22:23 | disposition home or self-care (01) ==
LOC: JER 17:39
DX: B02.9 Zoster without complications (principal); C34.90 Malignant neoplasm of unspecified part of unspecified bronchus or lung
CPT/HCPCS: 36415; 71275-TC; 80053; 82550; 84484; 85025; 85610; 87804; 93005; 93010; 99285-25; C9803; Q9967; U0003; U0005

== ENCOUNTER 2020-10-24 08:30 | Day surgery (SDC) | payer OTHER ==
[2020-10-19 11:17] VITALS: BMI 29.6
[2020-10-24] MEDS: CYCLOPENTOLATE 2% OPHTH SOLN 2 ML BOTTLE ONE ×3 (10:00→10:10)
[2020-10-24] MEDS: TROPICAMIDE 1% OPHTH SOLN 15 ML BOTTLE ONE ×3 (10:00→10:10)
[2020-10-24] MEDS: CIPROFLOXACIN 0.3% EYE DROPS 5 ML BOTTLE ONE ×3 (10:00→10:10)
[2020-10-24] MEDS: PHENYLEPHRINE 2.5% OPHTH SOLN 15 ML BOTTLE ONE ×3 (10:00→10:10)
[2020-10-24] MEDS ORDERED: CARBACHOL 0.01% INTRA-OCULAR 1.5 ML VIAL ONE (10:50)
[2020-10-24] MEDS ORDERED: NEO/POLYMYX B SULF/DEXAMETH OPHTHALMIC 5ML BOTTLE ONE (10:50)
[2020-10-24] MEDS ORDERED: BSS (NA/CA/MG/K) BALANCED SALT SOLUTION OPHTH SOLN 15 ML BOTTLE ONE (10:50)
[2020-10-24] MEDS ORDERED: MIDAZOLAM HCL 2 MG/2 ML SINGLE DOSE VIAL ONE (11:07)
[2020-10-24 12:11] VITALS: TEMP 97.7
[2020-10-24 12:13] VITALS: BP 121/90; PULSE 88
== END 2020-10-24 12:05 | disposition home or self-care (01) ==
LOC: FASU 08:30
PROVIDERS: ATTEND Ophthalmology
PROC: 08RK3JZ Replacement of Left Lens with Synthetic Substitute, Percutaneous Approach (ICD-10-PCS; principal; 2020-10-24 11:09)
DX: H26.8 Other specified cataract (principal)
CPT/HCPCS: 82962